=== PATIENT | female | born 1990 | race Hispanic/Latino ===

== ENCOUNTER 2022-02-20 20:50 | Inpatient (IN) | payer OTHER ==
[~2022-02-20] VITALS: Ht 162.6 cm; Wt 115.9 kg
[2022-02-20] MEDS ORDERED: MORPHINE 4 MG SYG IVP ONE (22:00)
[2022-02-20] MEDS ORDERED: ONDANSETRON 4MG INJ IVP ONE (22:00)
[2022-02-20] MEDS: CLINDAMYCIN IVPB 600MG/50ML 50 ML IV SCH (22:34)
[2022-02-20 22:35] LABS: BASOPHILS % (AUTO) 0.4 % (0.0-5.0); EOSINOPHILS % (AUTO) 1.9 % (0.0-8.0); HEMATOCRIT 37.7 % (36-48); LYMPHOCYTES % (AUTO) 18.1 % (21.0-51.0); MEAN CORPUSCULAR HEMOGLOBIN 28.3 pg (27.0-33.0); MEAN CORPUSCULAR HGB CONC 33.4 g/dL (32.0-36.0); MEAN CORPUSCULAR VOLUME 84.5 fL (79-99); MONOCYTES % (AUTO) 5.8 % (3.0-13.0); NEUTROPHILS % (AUTO) 73.2 % (40.0-77.0); PLATELET COUNT (AUTO) 400 K/uL (130-400); RED BLOOD CELL COUNT(AUTO) 4.46 MIL/uL (4.00-5.50); RED CELL DISTRIBUTION WIDTH 12.9 % (11.0-15.5); WHITE BLOOD COUNT (AUTO) 15.8 K/uL (4.8-10.8)
[2022-02-20 22:40] LABS: BILIRUBIN,URINE Negative (NEGATIVE); COLOR,URINE Yellow (YELLOW); GLUCOSE, URINE (UA) Negative (NEGATIVE); KETONES,URINE Trace mg/dL (NEGATIVE); LEUKOCYTE ESTERASE ,URINE Moderate (NEGATIVE); NITRATE,URINE Negative (NEGATIVE); OCCULT BLOOD,URINE Trace (NEGATIVE); PH,URINE 5.5 (5.0-8.0); PROTEIN,URINE POS 1+ mg/dL (NEGATIVE)
[2022-02-20 22:47] LABS: CREATININE 0.8 mg/dL (0.5-1.5); POTASSIUM 3.3 mmol/L (3.5-5.1)
[2022-02-20 22:49] LABS: APPEARANCE,URINE CLOUDY (CLEAR)
[2022-02-20 22:52] LABS: ALBUMIN 3.3 g/dL (3.5-5.0); BILIRUBIN,TOTAL 0.4 mg/dL (0.2-1.0); TOTAL PROTEIN, SERUM 7.5 g/dL (6.0-8.3)
[2022-02-20 22:57] LABS: BACTERIA,URINE Few /HPF (None Seen); MUCUS,URINE Few LPF (None Seen)
[2022-02-20] MEDS ORDERED: POTASSIUM BICARB/CIT AC 25 MEQ TABLET.EFF PO ONE (23:00)
[2022-02-20] MEDS ORDERED: PHARMACY COMMUNICATION MISC SCH (23:30)
[2022-02-21] MEDS ORDERED: ONDANSETRON 4MG TABLET PO PRN (01:30)
[2022-02-21] MEDS ORDERED: VANCOMYCIN 1G/250ML KIT 250 ML IV ONE (01:30)
[2022-02-21] MEDS ORDERED: ACETAMINOPHEN 325 MG TAB PO PRN (01:30)
[2022-02-21] MEDS: METRONIDAZOLE 500MG/100ML BAG 100 ML IVPB SCH ×3 (01:30→18:47)
[2022-02-21] MEDS ORDERED: PHARMACY COMMUNICATION MISC SCH (01:30)
[2022-02-21] MEDS ORDERED: VANCOMYCIN PROTOCOL PER PHARMACY IV SCH (01:30)
[2022-02-21] MEDS ORDERED: DEXTROSE 50%-WATER 50 ML DISP.SYRIN IV PRN (01:30)
[2022-02-21] MEDS ORDERED: 0.9% NACL 250ML 250 ML ONE ×5 (02:35→23:25)
[2022-02-21 03:00] VITALS: BP 146/0
[2022-02-21] MEDS: MORPHINE 2 MG SYG IVP PRN ×4 (03:55→18:56)
[2022-02-21 04:46] LABS: HEMATOCRIT 34.6 % (36-48); MEAN CORPUSCULAR HEMOGLOBIN 27.7 pg (27.0-33.0); MEAN CORPUSCULAR HGB CONC 32.4 g/dL (32.0-36.0); MEAN CORPUSCULAR VOLUME 85.6 fL (79-99); RED BLOOD CELL COUNT(AUTO) 4.04 MIL/uL (4.00-5.50); RED CELL DISTRIBUTION WIDTH 12.9 % (11.0-15.5); WHITE BLOOD COUNT (AUTO) 15.4 K/uL (4.8-10.8)
[2022-02-21 05:03] LABS: HEMOGLOBIN A1C 6.6 % (4.0-6.0)
[2022-02-21 05:13] LABS: ALBUMIN 2.9 g/dL (3.5-5.0); BILIRUBIN,TOTAL 0.5 mg/dL (0.2-1.0); CREATININE 0.8 mg/dL (0.5-1.5); MAGNESIUM 1.8 mg/dL (1.80-2.40); POTASSIUM 3.7 mmol/L (3.5-5.1); TOTAL PROTEIN, SERUM 6.7 g/dL (6.0-8.3)
[2022-02-21] MEDS: INSULIN R PO SS1 SQ SCH ×5 (06:32→21:00)
[2022-02-21] MEDS: CLINDAMYCIN IVPB 600MG/50ML 50 ML IV SCH ×3 (06:50→22:40)
[2022-02-21] MEDS ORDERED: CEFTRIAXONE 1G VIAL IVP SCH (07:14)
[2022-02-21 08:00] VITALS: BP 104/57
[2022-02-21 12:00] VITALS: BP 135/79
[2022-02-21] MEDS: CEFEPIME HCL 1 GM VIAL IVP SCH ×2 (13:42→22:37)
[2022-02-21] MEDS: VANCOMYCIN 1G/250ML KIT 250 ML IV SCH ×2 (15:29→23:26)
[2022-02-21 16:00] VITALS: BP 152/97
[2022-02-21 21:31] VITALS: BP 140/96
[2022-02-22] VITALS (7 sets, daily range): BP systolic 129–155; BP diastolic 53–95
[2022-02-22] MEDS: METRONIDAZOLE 500MG/100ML BAG 100 ML IVPB SCH ×3 (01:45→18:18)
[2022-02-22] MEDS ORDERED: 0.9% NACL 250ML 250 ML ONE ×2 (06:14→14:51)
[2022-02-22] MEDS: CEFEPIME HCL 1 GM VIAL IVP SCH ×3 (06:20→21:44)
[2022-02-22] MEDS: CLINDAMYCIN IVPB 600MG/50ML 50 ML IV SCH (06:22)
[2022-02-22] MEDS: INSULIN R PO SS1 SQ SCH ×4 (06:35→20:36)
[2022-02-22] MEDS: VANCOMYCIN 1G/250ML KIT 250 ML IV SCH ×3 (07:08→22:19)
[2022-02-23] VITALS (27 sets, daily range): BP systolic 113–164; BP diastolic 54–89
[2022-02-23] MEDS: METRONIDAZOLE 500MG/100ML BAG 100 ML IVPB SCH ×3 (01:17→18:30)
[2022-02-23 04:35] LABS: HEMATOCRIT 37.6 % (36-48); MEAN CORPUSCULAR HEMOGLOBIN 28.2 pg (27.0-33.0); MEAN CORPUSCULAR VOLUME 85.6 fL (79-99); RED BLOOD CELL COUNT(AUTO) 4.39 MIL/uL (4.00-5.50); RED CELL DISTRIBUTION WIDTH 12.9 % (11.0-15.5); WHITE BLOOD COUNT (AUTO) 10.7 K/uL (4.8-10.8)
[2022-02-23 04:40] LABS: CREATININE 0.8 mg/dL (0.5-1.5); MAGNESIUM 2.1 mg/dL (1.80-2.40); POTASSIUM 3.8 mmol/L (3.5-5.1)
[2022-02-23] MEDS: CEFEPIME HCL 1 GM VIAL IVP SCH ×3 (05:43→20:49)
[2022-02-23] MEDS: VANCOMYCIN 1G/250ML KIT 250 ML IV SCH ×3 (06:04→21:44)
[2022-02-23] MEDS: INSULIN R PO SS1 SQ SCH ×3 (06:07→20:07)
[2022-02-23] MEDS ORDERED: SUCCINYLCHOLINE 200MG/10ML SYR ONE (06:41)
[2022-02-23] MEDS ORDERED: LIDOCAINE PF 100MG/5ML (2%) SYRINGE 5ML ONE (06:41)
[2022-02-23] MEDS ORDERED: ROCURONIUM 10MG/1ML SYR 10 MG/ML ML ONE (06:42)
[2022-02-23] MEDS ORDERED: MIDAZOLAM HCL 1 MG/ML 2ML VIAL ONE (06:42)
[2022-02-23] MEDS ORDERED: ONDANSETRON 4MG INJ ONE (06:42)
[2022-02-23] MEDS ORDERED: PROPOFOL 10 MG/ML 20ML VIAL IV ONE ×2 (06:42→07:17)
[2022-02-23] MEDS ORDERED: FENTANYL CITRATE PF 50 MCG/1 ML 2ML VIAL ONE (06:50)
[2022-02-23] MEDS ORDERED: GLYCOPYRROLATE 1 MG/5 ML SYRINGE ONE (07:23)
[2022-02-23] MEDS ORDERED: NEOSTIGMINE 5MG/5ML SYR IV ONE (07:24)
[2022-02-23] MEDS ORDERED: MEPERIDINE-PF 25 MG/ML SYG ONE (07:51)
[2022-02-23] MEDS ORDERED: KETOROLAC 30MG VIAL (30MG/ML) ONE (08:06)
[2022-02-23] MEDS: MORPHINE 2 MG SYG IVP PRN ×2 (10:09→20:58)
[2022-02-24] VITALS: BP 138/85
[2022-02-24] MEDS: METRONIDAZOLE 500MG/100ML BAG 100 ML IVPB SCH ×2 (01:16→09:03)
[2022-02-24 04:00] VITALS: BP 152/98
[2022-02-24] MEDS: CEFEPIME HCL 1 GM VIAL IVP SCH ×2 (04:08→14:28)
[2022-02-24] MEDS: MORPHINE 2 MG SYG IVP PRN ×2 (04:13→11:53)
[2022-02-24] MEDS ORDERED: 0.9%NACL 100ML 100 ML ONE (05:30)
[2022-02-24] MEDS ORDERED: 0.9% NACL 250ML 250 ML ONE ×2 (05:33→14:16)
[2022-02-24] MEDS: VANCOMYCIN 1G/250ML KIT 250 ML IV SCH ×2 (05:35→14:28)
[2022-02-24] MEDS: INSULIN R PO SS1 SQ SCH ×3 (05:48→16:30)
[2022-02-24 07:30] VITALS: BP 114/53
[2022-02-24 11:30] VITALS: BP 137/76
[2022-02-24 15:30] VITALS: BP 154/106
== END 2022-02-24 18:10 | disposition home or self-care (01) | DRG 854 ==
LOC: EDH 20:50 → INTOOBSV 02-21 00:22 → OBSVTOIN 02-21 00:22 → UNDOADMOB 02-21 00:22 → EDHIP 02-21 00:22 → OBSVTOIN 02-21 00:29 → EDHIP 02-21 00:29 → 3BH 02-21 02:55
PROVIDERS: ADMIT Internal Medicine Infectious Disease; ATTEND Internal Medicine Infectious Disease
PROC: 0JB90ZZ Excision of Buttock Subcutaneous Tissue and Fascia, Open Approach (ICD-10-PCS; principal; 2022-02-23 07:11)
DX: A41.9 Sepsis, unspecified organism (principal); N39.0 Urinary tract infection, site not specified; L05.01 Pilonidal cyst with abscess; Z68.41 Body mass index [BMI] 40.0-44.9, adult; E11.9 Type 2 diabetes mellitus without complications; E66.01 Morbid (severe) obesity due to excess calories; E87.6 Hypokalemia; Z83.3 Family history of diabetes mellitus; Z88.0 Allergy status to penicillin; Z91.040 Latex allergy status; Z90.49 Acquired absence of other specified parts of digestive tract; Z98.891 History of uterine scar from previous surgery
CPT/HCPCS: 36415; 74177; 80048; 80053; 80202; 81001; 81025; 82948; 83036; 83605; 83735; 85025; 85027; 87040; 87070; 87076; 87088; G0378; J0330; J0692; J1815; J1885; J2001; J2175; J2250; J2270; J2405; J2704; J2710; J3010; J3370; J3490; J7050

== ENCOUNTER 2023-04-09 06:51 | Emergency (ER) | payer OTHER ==
[~2023-04-09] VITALS: Ht 162.6 cm; Wt 108.0 kg
[2023-04-09] MEDS ORDERED: CLIN-141 PO (08:18)
[2023-04-09] MEDS ORDERED: CILO2.5OS OU (08:18)
[2023-04-09] MEDS ORDERED: DEXAMETHASONE SOD PHOSPHATE 4 MG/ML 1ML VIAL IM ONE (08:30)
[2023-04-09 08:40] VITALS: BP 124/74
== END 2023-04-09 08:41 | disposition home or self-care (01) ==
LOC: EDH 06:51
DX: J02.0 Streptococcal pharyngitis (principal); R03.0 Elevated blood-pressure reading, without diagnosis of hypertension; H10.9 Unspecified conjunctivitis; F41.9 Anxiety disorder, unspecified; E66.9 Obesity, unspecified; Z20.822 Contact with and (suspected) exposure to COVID-19; Z88.0 Allergy status to penicillin; Z90.49 Acquired absence of other specified parts of digestive tract; Z91.040 Latex allergy status
CPT/HCPCS: 99283; 87635; 87880; 87804 ×2; 96372; J1100; C9803